=== PATIENT | male | born 1970 | race Caucasian/White ===

== ENCOUNTER 2021-04-09 07:36 | Emergency (ER) | payer BC ==
[~2021-04-09] VITALS: Ht 180.3 cm; Wt 90.7 kg
[2021-04-09] MEDS ORDERED: ONDANSETRON 4 MG/2 ML (SDV) Z0FRAN ONE (07:58)
[2021-04-09 08:12] LABS: BASOPHILS % (AUTO) 0 % (0-10); EOSINOPHILS % (AUTO) 0 % (0-10); HEMATOCRIT 49 % (40-54); LYMPHOCYTES # (AUTO) 1.4 10^3/uL (1.0-4.0); LYMPHOCYTES % (AUTO) 24 % (12-44); MEAN CORPUSCULAR HEMOGLOBIN 28 pg (25-34); MEAN CORPUSCULAR HGB CONC 33 g/dL (32-36); MEAN CORPUSCULAR VOLUME 85 fL (80-99); MEAN PLATELET VOLUME 11.9 fL (9.0-12.2); MONOCYTES # (AUTO) 0.4 10^3/uL (0.0-1.0); MONOCYTES % (AUTO) 7 % (0-12); NEUTROPHILS # (AUTO) 3.9 10^3/uL (1.8-7.8); NEUTROPHILS % (AUTO) 68 % (42-75); PLATELET COUNT 173 10^3/uL (130-400); WHITE BLOOD COUNT 5.7 10^3/uL (4.3-11.0)
[2021-04-09] MEDS ORDERED: KETOROLAC 30 MG/ML VIAL IVP ONE (08:15)
[2021-04-09] MEDS ORDERED: LACTATED RINGERS 1,000 ML IV ONE (08:15)
[2021-04-09 08:19] LABS: ALBUMIN 4.3 GM/DL (3.2-4.5)
[2021-04-09 08:20] LABS: POTASSIUM 3.9 MMOL/L (3.6-5.0)
[2021-04-09 08:21] LABS: CALCIUM 8.9 MG/DL (8.5-10.1)
[2021-04-09 08:22] LABS: TOTAL PROTEIN 7.7 GM/DL (6.4-8.2)
[2021-04-09 08:24] LABS: BILIRUBIN,TOTAL 0.8 MG/DL (0.1-1.0)
[2021-04-09 08:25] LABS: CREATININE SERUM 1.43 MG/DL (0.60-1.30)
--- NOTE | 2021-04-09 08:27 | ED General ---
General Chief Complaint: COVID19 Suspect/Confirmed Stated Complaint: COVID +, KIDNEY PAIN Nursing Triage Note: PT AMB TO RM 10 WITH COMPLAINT OF RIGHT LOWER BACK PAIN. TEST POSITIVE FOR COVID ON MONDAY WITH SYMPTOMS STARTING LAST MONDAY. Source of Information: Patient Exam Limitations: No Limitations History of Present Illness Date Seen by Provider: Apr 09, 2021 Time Seen by Provider: 07:50 Initial Comments This 50-year-old gentleman presents to the emergency room with complaints of sudden onset of right lower back pain and vomiting. He has had some minor lower back discomfort for a few days that suddenly became severe this morning. He was diagnosed with Covid 19 on April 03 after developing symptoms on March 31. He has been doing well at home despite having COVID-19 until this morning. He reports poor appetite with decreased oral intake of fluids and solids. He is afebrile. He is in distress with active dry heaving on assessment. He has not noticed any urinary changes. Allergies and Home Medications Allergies Coded Allergies: No Known Drug Allergies (Unverified , 04/09/21) Patient Home Medication List Home Medication List Reviewed: Yes Ondansetron (Ondansetron Odt) 4 Mg Tab.rapdis, 4 MG SL Q4H PRN for NAUSEA/VOMITING Prescribed by: CHARITY SPRING on 04/09/21 1133 Review of Systems Review of Systems Constitutional: malaise EENTM: no symptoms reported Respiratory: no symptoms reported Cardiovascular: no symptoms reported Gastrointestinal: see HPI Genitourinary: no symptoms reported Musculoskeletal: see HPI Skin: no symptoms reported Psychiatric/Neurological: No Symptoms Reported Hematologic/Lymphatic: No Symptoms Reported Immunological/Allergic: no symptoms reported Past [place] Hx Patient Social History Tobacco Use?: No Use of E-Cig and/or Vaping dev: No Substance use?: No Alcohol Use?: Yes Alcohol Frequency: Once in a while Pt feels they are or have been: No Past Medical History Surgeries: No Respiratory: No Cardiac: No Neurological: No Genitourinary: No Gastrointestinal: No Musculoskeletal: No Endocrine: No Cancer: No Psychosocial: No Integumentary: No Physical Exam Vital Signs Vital Signs - First Documented 04/09/21 07:48 Temp 38.0 Pulse 93 Resp 20 B/P (MAP) 128/94 (105) Pulse Ox 97 O2 Delivery Room Air Capillary Refill : Less Than 3 Seconds Height, Weight, BMI Height: '" Weight: lbs. oz. kg; 27.00 BMI Method: General Appearance: WD/WN, Mild Distress (Dry heaving) HEENT: PERRL/EOMI, Normal ENT Inspection Respiratory: Lungs Clear, Normal Breath Sounds, No Accessory Muscle Use Cardiovascular: Regular Rate, Rhythm, No Edema, No Murmur Gastrointestinal: Normal Bowel Sounds, Non Tender, Soft; No Distended Back: Normal Inspection, No CVA Tenderness, No Vertebral Tenderness Extremity: Normal Inspection, No Pedal Edema Neurologic/Psychiatric: Alert, Oriented x3, No Motor/Sensory Deficits, Normal Mood/Affect, floorwalker II-XII Norm as Tested Skin: Normal Color, Warm/Dry Progress/Results/Core Measures Suspected Sepsis SIRS Temperature: Pulse: 93 Respiratory Rate: 20 Laboratory Tests 04/09/21 07:55: White Blood Count 5.7 Blood Pressure 128 /94 Mean: 105 Laboratory Tests 04/09/21 07:55: Creatinine 1.43H, Platelet Count 173, Total Bilirubin 0.8 Results/Orders Lab Results Laboratory Tests Test 04/09/21 07:55 04/09/21 10:59 Range/Units White Blood Count 5.7 4.3-11.0 10^3/uL Red Blood Count 5.70 H 4.30-5.52 10^6/uL Hemoglobin 16.0 13.3-17.7 g/dL Hematocrit 49 40-54 % Mean Corpuscular Volume 85 80-99 fL Mean Corpuscular Hemoglobin 28 25-34 pg Mean Corpuscular Hemoglobin Concent 33 32-36 g/dL Red Cell Distribution Width 12.5 10.0-14.5 % Platelet Count 173 130-400 10^3/uL Mean Platelet Volume 11.9 9.0-12.2 fL Immature Granulocyte % (Auto) 0 % Neutrophils (%) (Auto) 68 42-75 % Lymphocytes (%) (Auto) 24 12-44 % Monocytes (%) (Auto) 7 0-12 % Eosinophils (%) (Auto) 0 0-10 % Basophils (%) (Auto) 0 0-10 % Neutrophils # (Auto) 3.9 1.8-7.8 10^3/uL Lymphocytes # (Auto) 1.4 1.0-4.0 10^3/uL Monocytes # (Auto) 0.4 0.0-1.0 10^3/uL Eosinophils # (Auto) 0.0 0.0-0.3 10^3/uL Basophils # (Auto) 0.0 0.0-0.1 10^3/uL Immature Granulocyte # (Auto) 0.0 0.0-0.1 10^3/uL Sodium Level 136 135-145 MMOL/L Potassium Level 3.9 3.6-5.0 MMOL/L Chloride Level 97 L 98-107 MMOL/L Carbon Dioxide Level 25 21-32 MMOL/L Anion Gap 14 5-14 MMOL/L Blood Urea Nitrogen 18 7-18 MG/DL Creatinine 1.43 H 0.60-1.30 MG/DL Estimat Glomerular Filtration Rate 53 BUN/Creatinine Ratio 13 Glucose Level 109 H 70-105 MG/DL Calcium Level 8.9 8.5-10.1 MG/DL Corrected Calcium 8.7 8.5-10.1 MG/DL Total Bilirubin 0.8 0.1-1.0 MG/DL Aspartate Amino Transf (AST/SGOT) 34 5-34 U/L Alanine Aminotransferase (ALT/SGPT) 38 0-55 U/L Alkaline Phosphatase 64 40-136 U/L Total Protein 7.7 6.4-8.2 GM/DL Albumin 4.3 3.2-4.5 GM/DL Urine Color DARK YELLOW Urine Clarity SL CLOUDY Urine pH 6.0 5-9 Urine Specific [place] >=1.030 1.016-1.022 Urine Protein 1+ H NEGATIVE Urine Glucose (UA) NEGATIVE NEGATIVE Urine Ketones TRACE H NEGATIVE Urine Nitrite NEGATIVE NEGATIVE Urine Bilirubin 1+ H NEGATIVE Urine Urobilinogen 0.2 < = 1.0 MG/DL Urine Leukocyte Esterase NEGATIVE NEGATIVE Urine RBC (Auto) TRACE-I H NEGATIVE Urine RBC RARE /HPF Urine WBC NONE /HPF Urine Squamous Epithelial Cells NONE /HPF Urine Crystals NONE /LPF Urine Bacteria NEGATIVE /HPF Urine Casts NONE /LPF Urine Mucus MODERATE H /LPF Urine Culture Indicated NO My Orders Orders - CHARITY MEJIA MD Ondansetron Injection (Zofran Injectio (04/09/21 07:58) Ed Iv/Invasive Line Start (04/09/21 08:04) Lactated Ringers (Lr 1000 Ml Iv Solution (04/09/21 08:15) Ketorolac Injection (Toradol Injection) (04/09/21 08:15) Cbc With Automated Diff (04/09/21 08:04) Comprehensive Metabolic Panel (04/09/21 08:04) Ua Culture If Indicated (04/09/21 08:04) Ct Abd/Pelvis Wo(Kidney Stone) (04/09/21 09:28) Medications Given in ED Current Medications Medications Dose Ordered Sig/Renea Route Start Time Stop Time Status Last Admin Dose Admin Ketorolac Tromethamine 30 mg ONCE ONCE IVP 04/09/21 08:15 04/09/21 08:16 DC 04/09/21 08:30 30 MG Lactated Ringer's 1,000 ml @ 0 mls/hr Q0M ONCE IV 04/09/21 08:15 04/09/21 08:16 DC 04/09/21 08:30 0 MLS/HR Ondansetron HCl 4 mg STK-MED ONCE .ROUTE 04/09/21 07:58 04/09/21 08:01 DC 04/09/21 08:12 8 MG Vital Signs/I&O 04/09/21 07:48 Temp 38.0 Pulse 93 Resp 20 B/P (MAP) 128/94 (105) Pulse Ox 97 O2 Delivery Room Air Capillary Refill : Less Than 3 Seconds Blood Pressure Mean: 105 Progress Note #1: Time: 08:27 Progress Note Patient is receiving IV fluids, Zofran, and Toradol. Symptoms are highly suspicious for ureteral stone. Labs and urinalysis are pending at this time. Progress Note #2: Time: 11:28 Progress Note Symptoms resolved with Toradol and Zofran. Patient was hydrated with IV fluids. Urine was eventually obtained and was concentrated with trace ketones. There was no evidence of RBCs or pyuria. There was minimal perinephric stranding of the right kidney on CT scan. This would suggest a possible recently passed small ureteral stone. Patient is feeling well and stable at this time. He is being discharged home. Diagnostic Imaging Diagonstic Imaging: CT Plain Films/CT/US/NM/MRI: abdomen, pelvis Comments CT abdomen and pelvis viewed by me and report reviewed. See report below: NAME: SIN RMFLORA Brar MED REC#: [id number] PT STATUS: REG ER : 1970 PHYSICIAN: CHARITY MEJIA MD ADMIT DATE: 04/09/21/ER Signed Date of Exam:04/09/21 CT ABD/PELVIS WO(KIDNEY STONE) PROCEDURE: CT urinary tract, rule out kidney stone. TECHNIQUE: Multiple contiguous axial images were obtained through the abdomen and pelvis without the use of intravenous contrast. Auto Exposure Controls were utilized during the CT exam to meet ALARA standards for radiation dose reduction. INDICATION: Right-sided abdominal pain. No hematuria. There is bibasilar discoid atelectasis. There is no effusion. The liver, gallbladder and bile ducts are normal. The spleen, pancreas and adrenals are normal. There is minimal perinephric stranding of the right kidney which is not present in the left kidney. There is no hydronephrosis. These findings could be residual of old infection versus acute pyelonephritis. This could also be seen with recently passed stone but no calculus is seen on either side. The bladder is normal. There is no evidence of appendicitis. There is no acute bowel abnormality. There is no ascites. There is no adenopathy. There is no bony abnormality. IMPRESSION: There is very minimal perinephric stranding around the right kidney with no other abnormality seen. Dictated by: Dictated on workstation # [id number] Dict: 04/09/21 1035 Trans: 04/09/21 1046 CV [id number] Interpreted by: NASIR WILLETT MD Electronically signed by: NASIR WILLETT MD 04/09/21 1046 Departure Impression Primary Impression: Right low back pain Qualified Codes: M54.50 - Low back pain, unspecified Additional Impressions: Nausea & vomiting Qualified Codes: R11.2 - Nausea with vomiting, unspecified COVID-19 Dehydration Disposition: 01 HOME, SELF-CARE Condition: Improved Departure-Patient Inst. Referrals: NO,LOCAL PHYSICIAN (PCP/Family) Primary Care Physician Patient Instructions: COVID-19 Overview, Kidney Stone, Adult ED Add. Discharge Instructions: Increase your oral hydration. You should be drinking enough clear liquids that you are urinating every 2-3 hours and your urine is light yellow to clear in color. If your pain returns you may take Tylenol (acetaminophen) up to 1000 mg every 6 hours as needed and/or ibuprofen up to 600 mg every 6 hours as needed. If nausea returns, you may take Zofran (ondansetron) as prescribed. Take 1 tablet under the tongue every 4 hours as needed. Call with questions or concerns. Return to the ER if you have worsening symptoms. Complete your quarantine per health department instructions. All discharge instructions reviewed with patient and/or family. Voiced understanding. Scripts Ondansetron (Ondansetron Odt) 4 Mg Tab.rapdis 4 MG SL Q4H PRN for NAUSEA/VOMITING, #10 TAB Prov: CHARITY MEJIA MD 04/09/21 CHARITY MEJIA MD Apr 09, 2021 08:27
--- NOTE | 2021-04-09 10:41 | Diagnostic Imaging Report ---
PROCEDURE: CT urinary tract, rule out kidney stone. TECHNIQUE: Multiple contiguous axial images were obtained through the abdomen and pelvis without the use of intravenous contrast. Auto Exposure Controls were utilized during the CT exam to meet ALARA standards for radiation dose reduction. INDICATION: Right-sided abdominal pain. No hematuria. There is bibasilar discoid atelectasis. There is no effusion. The liver, gallbladder and bile ducts are normal. The spleen, pancreas and adrenals are normal. There is minimal perinephric stranding of the right kidney which is not present in the left kidney. There is no hydronephrosis. These findings could be residual of old infection versus acute pyelonephritis. This could also be seen with recently passed stone but no calculus is seen on either side. The bladder is normal. There is no evidence of appendicitis. There is no acute bowel abnormality. There is no ascites. There is no adenopathy. There is no bony abnormality. IMPRESSION: There is very minimal perinephric stranding around the right kidney with no other abnormality seen. Dictated by: Dictated on workstation # [id number]
[2021-04-09 11:04] LABS: CLARITY,URINE SL CLOUDY; COLOR,URINE DARK YELLOW; GLUCOSE, URINE (UA) NEGATIVE (NEGATIVE); KETONES,URINE TRACE (NEGATIVE); LEUKOCYTE ESTERASE ,URINE NEGATIVE (NEGATIVE); NITRITE,URINE NEGATIVE (NEGATIVE); PROTEIN,URINE 1+ (NEGATIVE)
[2021-04-09 11:18] LABS: BACTERIA,URINE NEGATIVE /HPF; BILIRUBIN,URINE 1+ (NEGATIVE); RBC,URINE RARE /HPF
[2021-04-09] MEDS ORDERED: ONDA4TAB11 SL (11:33)
[2021-04-09 11:54] VITALS: BP 124/88
== END 2021-04-09 11:54 | disposition home or self-care (01) ==
LOC: EDUNIT# 07:36 → ER 07:41
DX: U07.1 COVID-19 (principal); M54.50 Low back pain, unspecified; R11.2 Nausea with vomiting, unspecified; E86.0 Dehydration
CPT/HCPCS: 36415; 74176; 80053; 81000; 85025